=== PATIENT | male | born 1965 | race Caucasian/White ===

== ENCOUNTER 2017-06-24 18:03 | Observation (INO) ==
[2017-06-24] MEDS ORDERED: Aspirin 81 MG TAB.CHEW PO ONE (18:10)
--- NOTE | 2017-06-24 18:25 | Emergency Department Note ---
Disposition Clinical Impression: Chest wall tenderness Disposition: Still a Patient Reasons to Return/Additional Instructions: Take medications as described, follow up with cardiology within 48 hours. If his symptoms change or worsen please return to the ED for reevaluation. Forms: ED Satisfaction Letter Chest Pain HPI - General Chief Complaint: ED Chest Pain Stated Complaint: CP Time Seen by Provider: 06/24/17 18:06 Source: patient Limitations: no limitations Vital Signs Reviewed: Yes Nursing Notes Reviewed: Yes - History of Present Illness HPI Narrative: Patient's 52-year-old male with a history of vertigo and rhythm is currently status post pacemaker 10 years. Patient complains of chest pain subxiphoid with radiation to left shoulder and through to his back that started 1 hour ago while at home sitting at rest. 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 Patient denies any other medical history for hypertension, hyperlipidemia, diabetes. Patient takes part and chewing tobacco and occasional alcohol usage. 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 Patient states he has some dizziness with chest pain and when he sits up. Severity scale (1-10): 9 - Related Data Allergies Allergy/AdvReac Type Severity Reaction Status Date / Time No Known Allergies Allergy Verified 06/24/17 18:18 Review of Systems: Patient admits to dizziness (room spinning), but denies headache, nausea, vomiting, abdominal pain, diarrhea, hematochezia, melena, hematuria, lower back pain, extremity numbness or weakness All systems ED: reviewed and negative except as stated. Review of Systems: As Per HPI Chest Pain PMH - Past Medical History Medical history: Reports: other Psychiatric history: Reports: depression - Social History Smoking Status: Never smoker Alcohol use: Reports: occasionally Drug use: Reports: none Physical Exam - General Limitations: no limitations General appearance: alert - Head Head exam: atraumatic, normocephalic, normal inspection - Eye Eye exam: Present: normal appearance, PERRL, EOMI. Absent: scleral icterus - ENT ENT exam: normal exam, mucous membranes moist, other (Poor dentition) - Neck Neck exam: Present: normal inspection, full ROM, trachea midline. Absent: tenderness, meningismus, lymphadenopathy - Chest Chest inspection: Present: symmetric chest wall rise, tenderness (To palpation subxiphoid region contingency of the patient's left-sided chest wall to left shoulder and down posterior chest wall and left side.) - Respiratory Respiratory exam: Present: normal lung sounds bilaterally. Absent: respiratory distress, wheezes, accessory muscle use - Cardiovascular Cardiovascular exam: Present: regular rate, normal rhythm - Abdominal Exam Abdominal exam: Present: soft, Non-Tender, normal bowel sounds. Absent: distention, guarding, rebound, rigidity - Extremities Exam Extremities exam: Present: normal inspection, full ROM, tenderness, normal capillary refill. Absent: pedal edema, joint swelling, calf tenderness - Expanded Lower Extremity Exam Knee exam: Present: normal inspection, full ROM. Absent: tenderness Lower leg exam: Present: normal inspection, full ROM. Absent: tenderness, swelling Neurovascular/Tendon exam: Present: normal capillary refill. Absent: pulse deficit, motor deficit - Back Exam Back exam: Present: normal inspection, full ROM, tenderness. Absent: CVA tenderness (R), CVA tenderness (L) - Neurological Exam Neurological exam: Present: alert, oriented X3, CN II-XII intact - Skin Skin exam: Present: warm, dry, intact, normal color Course - Reevaluation(s) Reevaluation #1: ACS workup ordered, aspirin and nitroglycerin ordered, patient currently is 10 out of 10 chest wall tenderness reproducible palpation order NSAID therapy for chest wall inflammation if no reduction in chest pain symptoms Time: 18:34 Vital Signs Temperature 98 F 06/24/17 18:06 Pulse Rate 72 06/24/17 18:06 Respiratory Rate 16 06/24/17 18:06 Blood Pressure 144/89 06/24/17 18:06 O2 Sat by Pulse Oximetry 98 06/24/17 18:06 Temperature 98 F 06/24/17 18:06 Pulse Rate 61 06/24/17 19:14 Respiratory Rate 18 06/24/17 19:14 Blood Pressure 109/75 06/24/17 19:14 O2 Sat by Pulse Oximetry 98 06/24/17 19:14 Oxygen Delivery Oxygen Delivery Room Air Chest Pain - MDM Narrative Medical decision making narrative: Patient prior cardiac history sent onset of chest pain 10 sternal anterior chest wall and shoulder pain reproducible with palpation which patient states the back same type of pain when I press on his chest wall, is concerning for possible ACS/unstable angina symptoms were at rest., Aortic dissection with complaint of radiation from front to back. ACS labs and imaging ordered. Current plan is pending troponin. If the troponin is negative, and resolution of symptoms with therapy here and recommend follow-up outpatient with cardiology in 48 hours and daily aspirin. If troponins positive patient will be admitted for further ACS workup and trending of troponins Patient's care handed over to coming on night crew. SBAR relayed to Dr. Lal who has assumed care for remainder patient's workup and final disposition - Lab Data Result diagrams: 06/24/17 18:36 06/24/17 18:36 Lab Results 06/24/17 06/24/17 06/24/17 Range/Units 18:36 18:36 18:36 WBC 5.5 (4.3-11.1) K/mcL RBC 4.95 (4.19-5.50) M/mcL Hgb 15.1 (12.9-16.9) g/dL Hct 45.2 (37.5-50.1) % MCV 91.3 (83.0-100.0) fL MCH 30.5 (28.0-33.3) pg MCHC 33.4 (31.6-35.5) g/dL RDW 11.9 (11.5-14.5) % Plt Count 236 (140-400) K/mcL MPV 10.6 (9.4-12.4) fL Immature Gran % 0.2 (0-4) % Seg Neutrophils % 60.4 % Lymphocytes % 29.0 % Monocytes % 8.2 % Eosinophils % 1.3 % Basophils % 0.9 % Neutrophils # 3.3 (1.6-8.9) K/mcL Lymphocytes # 1.6 (0.6-4.6) K/mcL Monocytes # 0.5 (0.0-1.3) K/mcL Eosinophils # 0.1 (0.0-0.6) K/mcL Basophils # 0.1 (0.0-0.2) K/mcL Sodium 141 (136-145) mEq/L Potassium 3.9 (3.5-4.5) mEq/L Chloride 106 (98-109) mEq/L Carbon Dioxide 26 (19-29) mEq/L BUN 23 (8-26) mg/dL Creatinine 1.11 (0.72-1.25) mg/dL Est GFR ( Amer) > 60 (> 60) Est GFR (Non-Af Amer) > 60 (> 60) BUN/Creatinine Ratio 21 (6-26) Glucose 109 H (70-99) mg/dL Calculated Osmolality 296 (280-300) Calcium 9.9 (8.6-10.8) mg/dL Troponin I 0.00 (0-0.03) ng/mL - EKG Data EKG attestation: Yes I reviewed and interpreted this EKG. EKG results narrative: EKG taken 06/24/2017 1807 hrs. shows: normal sinus rhythm no acute ST elevations or depressions in any leads. No S1 and QT T3, no Brugada, no delta wave. Heart Score - Score History: Slightly Suspicious EKG: Normal Age: 45-65 Risk Factors: 1-2 risk factors Troponin: Less than normal limit HEART Score Total: 2 S.B.A.R. - S.B.A.R. Transition of Care: Transition care handed to coming on a crew of Dr. Montero and Dr. Lal Situation: Demographics, MOA Background: Presenting Complaint, Relevant PMH, Meds, & Allergies Assessment: Vital Signs, Course and respsone to treatment, Exam Concerns, Patient/Family Expectation, Pertinant Lab Results, Outstanding Labs Recommendation: Barrier(s) to disposition, Recommendation based on pending studies, treatments, or consults S.B.A.R. Report Given to: Doctor Lal SKwasiAAndrew Repor Time: 18:50
[2017-06-24] MEDS ORDERED: 0.9 % Sodium Chloride 1,000 ML IVC ONE (18:32)
--- NOTE | 2017-06-24 18:37 | Emergency Department Note ---
START Narrative - START START: I examined this patient and my medical decision-making was reviewed with the SECURITY INTELLIGENCE ANALYST/PA/Advanced Practice Nurse/Resident Physician. I agree with the documented findings, disposition and treatment plan as described except to the extent set forth below. ED attending note: Patient seen with emergency medicine resident Dr. OLSON. Please see a copy of his note for details of the H&P, evaluation, management and disposition of this patient. We independently had [id number] contact with the patient Briefly: A 52-year-old male history of past Anderson, presents with chest pain for 1 day. EKG shows no acute ischemic changes sinus rhythm. Patient has a pacemaker for bradycardia from years ago. No known coronary artery disease. She was tobacco. Heart score is at 2. Awaiting troponin and chest x-ray. Plan is safe imaging and laboratory studies are otherwise unremarkable, discharge home and outpatient follow-up with daily baby aspirin. Disposition pending. Case will be signed over to the oncoming ED attending team of Dr. MCLAUGHLIN and Dr. gould
[2017-06-24] MEDS: Nitroglycerin 0.4 MG TAB.SUBL SL PRN ×3 (18:44→22:08)
[2017-06-24 18:45] LABS: Basophils # 0.1 K/mcL (0.0-0.2); Basophils % 0.9 %; Eosinophils # 0.1 K/mcL (0.0-0.6); Eosinophils % 1.3 %; Hematocrit 45.2 % (37.5-50.1); Hemoglobin 15.1 g/dL (12.9-16.9); Immature Granulocytes % 0.2 % (0-4); Lymphocytes # 1.6 K/mcL (0.6-4.6); Mean Corpuscular HGB Conc 33.4 g/dL (31.6-35.5); Mean Corpuscular Hemoglobin 30.5 pg (28.0-33.3); Mean Corpuscular Volume 91.3 fL (83.0-100.0); Mean Platelet Volume 10.6 fL (9.4-12.4); Monocytes # 0.5 K/mcL (0.0-1.3); Monocytes % 8.2 %; Neutrophils # 3.3 K/mcL (1.6-8.9); Platelet Count 236 K/mcL (140-400); Red Blood Count 4.95 M/mcL (4.19-5.50); Red Cell Distribution Width 11.9 % (11.5-14.5); Segmented Neutrophils % 60.4 %
[2017-06-24 18:58] LABS: BUN/Creatinine Ratio 21 (6-26); Blood Urea Nitrogen 23 mg/dL (8-26); Calcium 9.9 mg/dL (8.6-10.8); Carbon Dioxide 26 mEq/L (19-29); Chloride 106 mEq/L (98-109); Glucose 109 mg/dL (70-99); Osmolality,Calculated 296 (280-300); Potassium 3.9 mEq/L (3.5-4.5); Sodium 141 mEq/L (136-145); eGFR For African Americans > 60 (> 60); eGFR For Non-African Americans > 60 (> 60)
--- NOTE | 2017-06-24 19:36 | Emergency Department Note ---
Disposition Clinical Impression: Chest pain, rule out acute myocardial infarction Disposition: Admitted As Inpatient Condition: Good Time of Disposition: 19:30 Chest Pain HPI - General Chief Complaint: ED Chest Pain Stated Complaint: CP Time Seen by Provider: 06/24/17 18:06 Source: patient Limitations: no limitations Vital Signs Reviewed: Yes Nursing Notes Reviewed: Yes - History of Present Illness Severity scale (1-10): 9 - Related Data Allergies Allergy/AdvReac Type Severity Reaction Status Date / Time No Known Allergies Allergy Verified 06/24/17 18:18 Chest Pain PMH - Past Medical History Medical history: Reports: other Psychiatric history: Reports: depression - Social History Smoking Status: Never smoker Alcohol use: Reports: occasionally Drug use: Reports: none Physical Exam - General Limitations: no limitations General appearance: alert Course Vital Signs Temperature 98 F 06/24/17 18:06 Pulse Rate 72 06/24/17 18:06 Respiratory Rate 16 06/24/17 18:06 Blood Pressure 144/89 06/24/17 18:06 O2 Sat by Pulse Oximetry 98 06/24/17 18:06 Temperature 98.2 F 06/24/17 20:39 Pulse Rate 60 06/24/17 20:39 Respiratory Rate 15 06/24/17 20:39 Blood Pressure 106/67 06/24/17 20:39 O2 Sat by Pulse Oximetry 97 06/24/17 20:39 Oxygen Delivery Oxygen Delivery Nasal Cannula Chest Pain - MDM Narrative Medical decision making narrative: I, Servando Montero, examined this patient and my medical decision-making was reviewed with the BONDING AGENT/PA/Advanced Practice Nurse/Resident Physician. I agree with the documented findings, disposition and treatment plan as described except to the extent set forth below. 52-year-old male received in sign out at start of my shift pending laboratory evaluation, reevaluation and disposition. On my reevaluation the patient states he had acute onset of a sharp pain that radiated to his left shoulder and arm, fluctuated in intensity for about an hour prior to resolving with nitroglycerin. Patient states with the chest pain he became dyspneic, tachycardic, diaphoretic and near syncopal. Last stress test was over 10 years ago in [place]. 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 He states that he has become increasingly dyspneic with exertion. I am unable to classify this patient's pain as musculoskeletal and he does not have a clear picture of the chest pains etiology. Pt will be admitted for continuation of his care. - Medical Records Medical records reviewed: Yes I reviewed the patient's medical records. - Lab Data Lab results reviewed: Yes I reviewed the patient's lab results. Result diagrams: 06/24/17 18:36 06/24/17 18:36 Lab Results 06/24/17 06/24/17 06/24/17 Range/Units 18:36 18:36 18:36 WBC 5.5 (4.3-11.1) K/mcL RBC 4.95 (4.19-5.50) M/mcL Hgb 15.1 (12.9-16.9) g/dL Hct 45.2 (37.5-50.1) % MCV 91.3 (83.0-100.0) fL MCH 30.5 (28.0-33.3) pg MCHC 33.4 (31.6-35.5) g/dL RDW 11.9 (11.5-14.5) % Plt Count 236 (140-400) K/mcL MPV 10.6 (9.4-12.4) fL Immature Gran % 0.2 (0-4) % Seg Neutrophils % 60.4 % Lymphocytes % 29.0 % Monocytes % 8.2 % Eosinophils % 1.3 % Basophils % 0.9 % Neutrophils # 3.3 (1.6-8.9) K/mcL Lymphocytes # 1.6 (0.6-4.6) K/mcL Monocytes # 0.5 (0.0-1.3) K/mcL Eosinophils # 0.1 (0.0-0.6) K/mcL Basophils # 0.1 (0.0-0.2) K/mcL Sodium 141 (136-145) mEq/L Potassium 3.9 (3.5-4.5) mEq/L Chloride 106 (98-109) mEq/L Carbon Dioxide 26 (19-29) mEq/L BUN 23 (8-26) mg/dL Creatinine 1.11 (0.72-1.25) mg/dL Est GFR ( Amer) > 60 (> 60) Est GFR (Non-Af Amer) > 60 (> 60) BUN/Creatinine Ratio 21 (6-26) Glucose 109 H (70-99) mg/dL Calculated Osmolality 296 (280-300) Calcium 9.9 (8.6-10.8) mg/dL Troponin I 0.00 (0-0.03) ng/mL - Radiology Data Radiology results reviewed: Yes I reviewed the patient's radiology results. Heart Score - Score History: Moderately Suspicious EKG: Normal Age: 45-65 Risk Factors: 1-2 risk factors Troponin: Less than normal limit HEART Score Total: 3
[2017-06-24] MEDS ORDERED: Naloxone 0.4 MG/ML INJ IVP PRN (20:12)
[2017-06-24] MEDS ORDERED: Nitroglycerin 0.4 MG TAB.SUBL SL PRN (20:16)
--- NOTE | 2017-06-24 20:23 | Internal Med History&Physical ---
<Brian Branham J - Last Filed: 06/24/17 20:19> Date of Encounter: 06/24/17 Time of Encounter: 20:19 Assessment and Plan (1) Chest pain, rule out acute myocardial infarction Current visit: Yes Status: Acute Being admitted for chest pain rule out myocardial infarction. Arrived in the ED with increasing chest pain, difficulty breathing, diaphoresis, dizziness and near syncopal episode. EKG showed normal sinus rhythm rate in the 70s. Troponin drawn in the ED was negative at 0.00. BMP, and CBC are unremarkable. Chest x-ray showed no acute pulmonary process. Admit for observation Consult cardiology due to history of bradycardia requiring a pacer. Patient is not working at time of arrival in the emergency department however the patient is remaining normal sinus rhythm~~dayshift rounding team to call cardiology consult. Exercise stress test Continuous telemetry Continuous SPO2 monitoring Q4 hour vitals Oxygen 2 L nasal cannula Trend troponins, CMP, CBC, lipids in the a.m. Cardiac diet, nothing by mouth after midnight, no beta blockers or caffeine before stress Patient remained saline locked Sublingual nitroglycerin order for chest pain DVT prophylaxis 40 mg subcutaneous Lovenox (2) Bradycardia Current visit: Yes Status: Acute Being admitted for chest pain rule out. Arrived in the ED with increasing chest pain, difficulty breathing, diaphoresis, and near syncopal episode.Patient has a history of bradycardia requiring a pacemaker. However the time of arrival in the ED the pacemaker was nonfunctioning. Thus far he has remained normal sinus rhythm without any chest pain since arrival. Cardio consult to assess further need for pacemaker and/or need for interrogation. (3) DVT prophylaxis Current visit: Yes Status: Acute Throughout hospital course the patient will have a decrease from baseline activity. Increased risk for DVT. Start lovenox SC 40mg daily. Internal Medicine - H&P: HPI Chief complaint: chest pain Admitted From: Home Plans for Post Hospital Care: Home History of present illness: Mr. Canales is a 52 year old male with a PMH of bradycardia requiring a pacer. Otherwise history is minimial as the patient does not regularly see a PCP. Being worked up as a CP r/o ND. Presented to [facility] with shortness of breath ongoing over the past few days. Admits that he has had a decrease in activity and increase in shortness of breath as well as intermittent chest pain and diaphoresis. However, the patient noted increasing chest pain, described as knifelike with radiation to the back and shoulders as well as left arm, diaphoresis, and dyspnea as well as dizziness and a near syncopal event. He was dynamically stable upon arrival to date. EKG showed normal sinus rhythm rate of 70. Troponin was drawn with a result of 0.00. CBC, and BMP both unremarkable. Chest x-ray was without acute process. Is being admitted to [facility] further workup and evaluation Past Med Surg Social Fam HX - Past Medical History Medical history: other Psychiatric history: depression - Social History Smoking Status: Never smoker Smokeless Tobacco Status: Yes Alcohol use: occasionally Drug use: none - Additional Family History Additional family history: Family history noncontributory Internal Medicine - H&P: Meds Allergies No Known Allergies Allergy (Verified 06/24/17 18:18) All Systems PM: A 10-system review of systems was performed and is negative for pertinent findings except as documented above in the HPI. - Constitutional Constitutional: fatigue, lethargy, weakness, no chills, no fever(s), no night sweats, no weight gain, no weight loss - EENT Eyes: no change in vision, no discharge, no pain, no photophobia Ears: no ear discharge, no ear pain, no tinnitus Nose, mouth and throat: no dysphagia, no nasal discharge, no neck pain, no sore throat - Cardiovascular Cardiovascular ROS IM: diaphoresis, dyspnea on exertion, lightheadedness, syncope (near syncopal), no chest pain, no edema, no irregular heart rhythm, no palpitations - Respiratory Respiratory: dyspnea, no cough, no wheezing, no chest congestion, no excessive phlegm production - Gastrointestinal Gastrointestinal: no abdominal pain, no diarrhea, no hematemesis, no hematochezia, no melena, no nausea, no vomiting - Musculoskeletal Musculoskeletal ROS IM: no numbness, no tingling - Integumentary Integumentary IM: no rash, no unusual bruising - Neurological Neurological ROS: dizziness, no confusion, no convulsions, no disequilibrium, no focal weakness, no headache(s), no numbness, no tingling, no tremor(s), no vertigo, no weakness - Hematologic/Lymphatic Hematologic/Lymphatic: no easy bruising - Constitutional Vitals: Temp Pulse Resp BP Pulse Ox 98 F 61 18 109/75 98 06/24/17 18:06 06/24/17 19:14 06/24/17 19:55 06/24/17 19:55 06/24/17 19:14 General appearance: Present: cooperative, A&O X 3, pleasant, no acute distress, answers questions appropriately - Head Head exam: Present: atraumatic, normocephalic - Eye Eye exam: Present: PERRL, conjuntiva pink, sclera anicteric Pupils: Present: PERRL - Neck Neck exam general surgery: Present: supple, trachea midline. Absent: lymphadenopathy - Respiratory Respiratory exam: Present: CTAB. Absent: accessory muscle use, rales, rhonchi, wheezes - Cardiovascular Cardiovascular exam: Present: RRR, +S1, +S2. Absent: diastolic murmur, gallop, rubs, systolic murmur - GI/Abdominal GI/Abdominal exam: Present: normal bowel sounds, soft, no peritoneal signs. Absent: distended, tenderness - Extremities Exam Extremities exam: Present: warm, radial pulses palpable and symmetrical. Absent : calf tenderness, cyanotic, pedal edema - Expanded Lower Extremities Exam Knee exam: Absent: swelling Lower Leg exam: Absent: swelling Foot/Toe exam: Absent: tenderness - Neurological Exam Neurological exam: Present: CN II-XII intact, oriented X3, no focal deficits. Absent: pronater drift, facial droop, speech deficit - Skin Skin exam: Present: dry, intact Internal Med - H&P Results - Labs CBC & Chem 7: 06/24/17 18:36 06/24/17 18:36 - EKG Data EKG shows normal: sinus rhythm (no ST elevation or depression) Rate: normal - Diagnostic Studies CT scan - chest Additional comments: NO ACUTE PULMONARY PROCESS <Asia Reid - Last Filed: 06/24/17 21:12> Date of Encounter: 06/24/17 Internal Medicine - H&P: HPI History of present illness: Mr. Canales is a 52 year old male All Systems PM: A 10-system review of systems was performed and is negative for pertinent findings except as documented above in the HPI. - Constitutional Vitals: Temp Pulse Resp BP Pulse Ox 98.2 F 60 15 106/67 97 06/24/17 20:39 06/24/17 20:39 06/24/17 20:39 06/24/17 20:39 06/24/17 20:39 Internal Med - H&P Results - Labs CBC & Chem 7: 06/24/17 18:36 06/24/17 18:36 - Attending Attestation I have personally performed a face to face evaluation on this patient. I have reviewed and agree with the care plan. History and Exam by me shows: 52 yo with increased SOB over the last few days, worse when mowing the lawn. Significant exertional component. Today, he was at rest when he noted onset of chest pressure, dyspnea, diaphoresis and pre-syncopal symptoms while sitting at home. Hazard a heaviness in chest. Reports hx of bradycardia s/p pacer > 10 years ago in [place]. He takes no meds. He is here to visit his family for a few weeks and will return to [place] early next month. ROS 14 point review of systems reviewed as best as possible given presentation. Pertinent positive or negative as per HPI or otherwise reviewed as negative General - AAO x 3 Psych - Appropriate affect/speech. No agitation Eyes - FAY. Eye lids intact. No scleral icterus ENT - Oral mucosa pink, dentition intact. External ear clear/dry/intact. No thyromegaly Lymphatics - No cervical/inguinal lympadenopathy Neuro - No gross peripheral or central neuro deficits with intact CN 2-12 exam Heart - Sinus. RRR. S1 and S2 present. No added HS/murmurs appreciated. No elevated JVD appreciated. No calf swellings/erythema Lung - Adequate air entry b/l, No crackes/wheezes appreciated GI - Soft, non-tender. No hepatosplenomegaly/ascites. BS+ - No CVA/suprapubic tenderness or palpable bladder distension Skin - Intact. No rash/petechiae/ecchymosis. Warm extremities MSK - Joints with normal ROM. No joint swellings Chest pain eval - hx seems concerning for cardiac in nature - trend trop - stress testing in the a.m Hx of bradycardia s/p pacer - family wishes to have pacer checked up since EKG does not indicate pacer is functional. - they mentioned that he will not see a doctor when he gets out of the hospital and wishes to use this opportunity to have him evaluated - consult cards to eval pacer - suspect battery
[2017-06-24] MEDS: Acetaminophen 325 MG TABLET PO PRN (22:08)
[2017-06-25 00:46] LABS: Basophils % 0.8 %; Eosinophils # 0.1 K/mcL (0.0-0.6); Eosinophils % 1.9 %; Hematocrit 37.9 % (37.5-50.1); Immature Granulocytes % 0.2 % (0-4); Lymphocytes # 1.8 K/mcL (0.6-4.6); Lymphocytes % 38.3 %; Mean Corpuscular HGB Conc 33.5 g/dL (31.6-35.5); Mean Corpuscular Hemoglobin 30.5 pg (28.0-33.3); Mean Corpuscular Volume 91.1 fL (83.0-100.0); Mean Platelet Volume 10.7 fL (9.4-12.4); Monocytes # 0.5 K/mcL (0.0-1.3); Monocytes % 9.7 %; Neutrophils # 2.3 K/mcL (1.6-8.9); Platelet Count 204 K/mcL (140-400); Red Blood Count 4.16 M/mcL (4.19-5.50); Red Cell Distribution Width 11.9 % (11.5-14.5); Segmented Neutrophils % 49.1 %
[2017-06-25 00:52] LABS: Hemoglobin 12.7 g/dL (12.9-16.9)
[2017-06-25 01:06] LABS: Alanine Aminotransferase 22 Units/L (0-55); Albumin 3.6 g/dL (3.5-5.0); Albumin/Globulin Ratio 1.3 (1.1-2.2); Alkaline Phosphatase 72 Units/L (38-126); Aspartate Amino Transferase 20 Units/L (5-34); BUN/Creatinine Ratio 23 (6-26); Bilirubin,Total 0.7 mg/dL (0.2-1.2); Blood Urea Nitrogen 20 mg/dL (8-26); Calcium 8.8 mg/dL (8.6-10.8); Carbon Dioxide 26 mEq/L (19-29); Chloride 107 mEq/L (98-109); Chol/HDL Ratio 4.5 (0-4.9); Cholesterol 186 mg/dL (< 200); Globulin 2.8 g/dL (2.4-3.5); Glucose 106 mg/dL (70-99); HDL Cholesterol 41 mg/dL (40-59); LDL Cholesterol,Calculated 119 mg/dL (0-99); Osmolality,Calculated 291 (280-300); Potassium 3.8 mEq/L (3.5-4.5); Sodium 139 mEq/L (136-145); Total Protein 6.4 g/dL (6.0-8.3); Triglycerides 130 mg/dL (< 150); eGFR For African Americans > 60 (> 60); eGFR For Non-African Americans > 60 (> 60)
[2017-06-25] MEDS: *HR* Enoxaparin 40 MG/0.4 ML SYRINGE SQ SCH (06:10)
--- NOTE | 2017-06-25 08:17 | Cardiology Consult Note ---
<Ryanne Farmer Francisco Javier - Last Filed: 06/25/17 08:22> Date of Encounter: 06/25/17 Time of Encounter: 08:00 Assessment and Plan (1) Chest pain Current Visit: Yes Status: Acute Presents with atypical chest pain. Troponin negative. No ischemic ECG changes. Likely not cardiac in etiology. Seen and examined in stress lab during stress test--patient did not have chest pain during test. Anticipate sign-off if no significant findings on exercise stress test. Qualifiers: Chest pain type: chest pain on breathing Qualified Code(s): R07.1 - Chest pain on breathing; R07.81 - Pleurodynia (2) Pacemaker Current Visit: Yes Status: Acute ECG upon arrival shows SR, HR 70. No indication that PPM is not functioning appropriately. Telemetry review: avg HR=67. No pause or bradycardia noted. Unable to interrogate device today as patient does not know brand of device. Has not been interrogated since implant. No urgency for interrogation as inpatient. Will arrange for outpatient follow-up at [facility] for routine device checks. Discussion w patient/family: The assessment and plan as outlined above was discussed with the patient and/or family members who expressed understanding and agreement. All questions were answered. Thank you for involving us in the care of your patient. Please call with any questions. The patient will be discussed and reviewed with Dr. Benitez; changes to be made accordingly. Anticipate Cardiology sign-off. History of Present Illness Consult date: 06/25/17 Requesting physician: Brian Branham Consult reason: Chest pain Chief complaint: Chest pain History of present illness: Mr. Canales is a 52 year old male with PMHx significant for bradycardia s/p PPM (2006) and former tobacco use who presented to the ED with complaints of chest discomfort. He reports pain started yesterday while sitting on the couch watching TV, pain was sharp and knife-like which prompted ED evaluation. Of note , he reports he routinely push mows the lawn without symptoms. Does endorse worsening shortness of breath over the past several months. Reports PPM implant nearly 10 years ago and has not followed with PCP or had device check. No records available in [facility], patient does not know the brand of device he has. Past Med Surg Social Fam HX - Past Medical History Attestation: Yes The following information was validated with the patient. Source: patient Medical history: other (bradycardia) Psychiatric history: depression - Past Surgical History Surgical History: pacemaker - Social History Smoking Status: Former smoker Packs per day: quit smoking 7 years ago Smokeless Tobacco Status: Yes (0.5 CAN) Alcohol use: occasionally Drug use: none - Family History Mother Living Status: Age at : 78 Cause of : CA Hx Family Cardiac Disorders: Yes Father Living Status: Cause of : CA Hx Family Cardiac Disorders: Yes Medications and Allergies No Known Home Drugs 06/24/17 [History] Allergies No Known Allergies Allergy (Verified 06/24/17 18:18) All Systems Review: A 10-system review of systems was performed and is negative for pertinent findings except as documented above in the HPI. - Cardiovascular Cardiovascular: as per HPI Physical Examination General: Conversant, No Apparent Distress HEENT: Atraumatic, Normocephaly, Mucus Membranes Moist Neck: No JVD, Normal carotid pulses Cardiac: Reg Rate and Rhythm, Normal S1 and S2, No Murmur Lungs: Normal Breath Sounds, No Wheeze, Rales, Rhonchi Neuro: Alert and responsive, No focal deficits noted Abdomen: Soft, Non-Tender Skin: No rashes noted on visualized skin Musculoskeletal: No Chest Wall Tenderness Extremities: No Clubbing, No Cyanosis, No Edema, Normal Pulses Results 06/25/17 00:33 06/25/17 00:33 Lab Results 06/25/17 06/25/17 06/25/17 00:33 00:33 00:33 WBC 4.7 Hgb 12.7 L D Hct 37.9 Plt Count 204 Sodium 139 Potassium 3.8 Chloride 107 Carbon Dioxide 26 BUN 20 Creatinine 0.87 Glucose 106 H Calcium 8.8 Total Bilirubin 0.7 AST 20 ALT 22 Alkaline Phosphatase 72 Troponin I 0.00 06/25/17 05:32 WBC Hgb Hct Plt Count Sodium Potassium Chloride Carbon Dioxide BUN Creatinine Glucose Calcium Total Bilirubin AST ALT Alkaline Phosphatase Troponin I 0.00 Active Medications Acetaminophen (Tylenol) 650 mg PO Q6HR PRN PRN Reason: Mild Pain (1-3) Stop: 12/24/17 20:13 Last Admin: 06/24/17 22:08 Dose: 650 mg Enoxaparin Sodium (Lovenox) 40 mg SQ 0600 [facility] PRN Reason: Protocol Stop: 12/25/17 06:01 Last Admin: 06/25/17 06:10 Dose: 40 mg Naloxone HCl (Narcan) 0.4 mg IVP Q2MIN PRN PRN Reason: Opioid Reversal Stop: 12/24/17 20:13 Nitroglycerin (Nitroglycerin) 0.4 mg SL Q5MIN PRN PRN Reason: Chest Pain Stop: 12/24/17 18:34 Last Admin: 06/24/17 22:08 Dose: 0.4 mg - Imaging and Cardiology Stress Test: pending Other Results: Telemetry: avg HR=67. No pause or bradycardia noted. Paced at times. - EKG Interpretation EKG results cardiology: personally reviewed Consult Discharge Plan - Plan Referrals: NONE,PCP [Primary Care Provider] - <Camila Benitez - Last Filed: 06/25/17 09:47> Date of Encounter: 06/25/17 Assessment and Plan Discussion w patient/family: The assessment and plan as outlined above was discussed with the patient and/or family members who expressed understanding and agreement. All questions were answered. Thank you for involving us in the care of your patient. Please call with any questions. History of Present Illness History of present illness: Mr. Canales is a 52 year old male All Systems Review: A 10-system review of systems was performed and is negative for pertinent findings except as documented above in the HPI. Physical Examination Vital Signs, Last 4 Hours Temp Pulse Resp BP Pulse Ox 06/25/17 08:25 97 06/25/17 08:24 97.6 F 59 17 107/71 96 Results 06/25/17 00:33 06/25/17 00:33 Lab Results 06/25/17 06/25/17 06/25/17 00:33 00:33 00:33 WBC 4.7 Hgb 12.7 L D Hct 37.9 Plt Count 204 Sodium 139 Potassium 3.8 Chloride 107 Carbon Dioxide 26 BUN 20 Creatinine 0.87 Glucose 106 H Calcium 8.8 Total Bilirubin 0.7 AST 20 ALT 22 Alkaline Phosphatase 72 Troponin I 0.00 06/25/17 05:32 WBC Hgb Hct Plt Count Sodium Potassium Chloride Carbon Dioxide BUN Creatinine Glucose Calcium Total Bilirubin AST ALT Alkaline Phosphatase Troponin I 0.00 - Attending Attestation I examined this patient and my medical decision-making was reviewed with the Resident Physician. I agree with the documented findings, disposition and treatment plan. Mr. Canales presents with atypical chest pain, negative troponins and no acute ECG changes. He is from visiting from [place] and reports having a pacemaker placed 10 years ago but does not follow a chemical mixer regularly. His sister, who I spoke with on the phone says that his pacer was placed in 2011. However, they are not aware of the type of pacemaker. We therefore are unable to interrogate it today over the weekend. This does not appear to be urgent and can wait until the weekday when the offices are open. The pacer was functioning overnight - no episodes of bradycardia. Otherwise, will await stress test findings. If no concerns, will anticipate signing off.
[2017-06-25] MEDS ORDERED: *HR* Morphine 2 MG/ML SYRINGE IVP PRN (10:51)
[2017-06-25] MEDS: Nitroglycerin 0.4 MG TAB.SUBL SL PRN ×2 (10:57→11:04)
--- NOTE | 2017-06-25 11:01 | Exercise Stress Test ---
Exercise Stress Name: Wei Canales Date of Study: 06/25/2017 Date: 1965 Ht: 70.0in Medical Record#: [id number] Age: 52 Wt: 191.0lb Gender: Male BSA: 2.05 Order #: [id number] Location: [facility] Room #: 3B49 Reading Physician: Camila Benitez DO Technologist: Chuckie Amezcua, FIRE PROTECTION EQUIPMENT TECHNICIAN, CCT Supervising Provider: Ryanne Farmer CNP Primary Physician: None Ordering Physician: Mirna Mo CNP Indication: Chest Pain Impressions: Stress ECG was indeterminate for ischemia due to failure to achieve target heart rate. ECG interpretation is also challenging secondary to abnormal ST findings at baseline. Exercise capacity was average. Adequate blood pressure response. No arrhythmias noted with stress. Patient had no chest pain with stress. Findings: Baseline ECG demonstrates NSR with HR [address] abnormalities. Exercise ECG is non diagnostic due to failure to achieve target heart rate. Also seen are nonspecific ST abnormalities at baseline making interpretation of stress ECG challenging. No arrhythmias noted during exercise or recovery. The patient demonstrated a adequate blood pressure response. The exercise capacity was average. No chest pain during stress procedure. History: Family Histor No Stress Test Summary: Stress Test Type: Treadmill Protocol: Landon Baseline Information: Maximum Predicted HR: 168 85% MPHR: 143 Blood Pressure: 108 / 72 Stress Information: Total Exercise Time: 9 20 Test Terminated Due To: Dyspnea Maximum Blood Pressure: 132 / 70 Maximum Heart Rate: 120 Percent Maximum Heart Rate Achieved: 72 Double Product: 15,840 METS Reached: 10.1 Updated by Camila Benitez on 06/25/2017 10:56:05 AM electronically signed on 06/25/2017 10:58:04 AM with status of Final
[2017-06-25] MEDS: Acetaminophen 325 MG TABLET PO PRN (11:12)
[2017-06-25] MEDS: predniSONE 20 MG TABLET PO SCH (15:04)
--- NOTE | 2017-06-25 15:18 | Internal Med Progress Note ---
Date of Encounter: 06/25/17 Time of Encounter: 12:30 - Assessment and plan (1) Chest pain Current Visit: Yes Status: Acute Assessment and plan: Patient still having intermittent bouts of epigastric/substernally located chest pain. Relieved with nitroglycerin consistent with either cardiac etiology or esophageal spasms secondary to his uncontrolled reflux. He is also endorsing worsened dyspnea on exertion recently. Echocardiogram pending. We will also treat with bronchodilators and steroids and assess his response. Of note, he is from [place] and is in town for the next couple weeks. He and his state that once he leaves the hospital, he is unlikely to return for any type of appointments for further assessments. Cardiology is on board-patient and requesting that his pacemaker be checked prior to discharge. Stress test difficult to interpret but appears to be unremarkable. Appreciate cardiology recommendations. ITS Impressions Chest X-Ray 06/24/17 18:10 IMPRESSION: No acute cardiopulmonary disease. D/ / Avery Starkey MD / Avery Starkey MD Interpreting Provider: Avery Starkey MD Exercise Stress Impressions: Stress ECG was indeterminate for ischemia due to failure to achieve target heart rate. ECG interpretation is also challenging secondary to abnormal ST findings at baseline. Exercise capacity was average. Adequate blood pressure response. No arrhythmias noted with stress. Patient had no chest pain with stress. Qualifiers: Chest pain type: chest pain on breathing Qualified Code(s): R07.1 - Chest pain on breathing; R07.81 - Pleurodynia (2) Pacemaker Current Visit: Yes Status: Chronic Assessment and plan: Patient stating he had have a pacemaker placed because his heart rate would routinely be in the 30s and 40s. His sister was able to send us a picture of the card for his pacemaker and it was placed in 2011 by [employer]. Patient is would like for the pacemaker to be interrogated prior to discharge. Patient and both agree that after he is discharged, he will not come back to the hospital. They are here from [place] and will be in town for another couple weeks. (3) POE (dyspnea on exertion) Current Visit: Yes Status: Acute Assessment and plan: Patient stating he used to be able to walk miles but he states over the past several weeks that he has had extreme shortness of breath limiting the amount that he can walk. Unclear causation at this time. The patient's of 10 months states that he is always on the go and always has to stay busy. We will check thyroid levels. Also could be undiagnosed COPD, he is a former heavy smoker and has never been on COPD medications. Could also have a component of heart failure-echocardiogram pending. He appears euvolemic on examination. (4) Tobacco abuse Current Visit: Yes Status: Chronic Assessment and plan: Patient currently uses smokeless tobacco however up until 6 years ago, he was a heavy smoker. Suspect he may have undiagnosed COPD. We will start with duo nebs and by mouth steroids to monitor his response (5) Esophageal spasm Current Visit: Yes Status: Suspected Assessment and plan: Patient stating he gets "heartburn real bad" daily. He does not take any medication. We will start him on twice a day PPI. Of note, patient's symptoms of severe stabbing epigastric/mid sternally located chest pain could be consistent with esophageal spasms secondary to uncontrolled hypertension. Of note, his pain is relieved with nitroglycerin which again would be consistent with esophageal spasms but could also be consistent with cardiac etiology- cardiology is on board, appreciate their recommendations. (6) GERD (gastroesophageal reflux disease) Current Visit: Yes Status: Chronic Qualifiers: Esophagitis presence: esophagitis presence not specified Qualified Code(s) : K21.9 - Gastro-esophageal reflux disease without esophagitis (7) Bradycardia Current Visit: Yes Status: Chronic (8) Learning disability Current Visit: Yes Status: Chronic Assessment and plan: I have confirmed with the patient's (NOT in presence of the patient- he becomes very angry and defensive) that he has learning disabilities. Patient did tell me that his sister in [place] "Gets my disability check and makes sure all my bills are paid. She keeps me." Patient is a poor historian but appears to comprehend most of what is going on. (9) DVT prophylaxis Current Visit: Yes Status: Acute Assessment and plan: Subcutaneous Lovenox - Subjective Interval history: Patient seen and examined. On examination, patient resting supine in bed. He currently denies pain but states he has been having chest pain throughout the day. He states that he is eating well. He currently denies shortness of breath above his norm but states he is worried because "I used to be able to walk miles, now I can't walk no where without gettin too short of breath." - Constitutional Vitals: Temp Pulse Resp BP Pulse Ox 97.9 F 70 16 107/62 94 06/25/17 10:57 06/25/17 11:09 06/25/17 11:09 06/25/17 11:09 06/25/17 11:09 General appearance: Present: cooperative, A&O X 3, pleasant, no acute distress, answers questions appropriately - Head Head exam: Present: atraumatic, normocephalic - Eye Eye exam: Present: PERRL, conjuntiva pink, sclera anicteric Pupils: Present: PERRL - Neck Neck exam general surgery: Present: supple, trachea midline. Absent: lymphadenopathy - Respiratory Respiratory exam: Present: decreased breath sounds. Absent: accessory muscle use, rales, respiratory distress, rhonchi - Cardiovascular Cardiovascular exam: Present: RRR, +S1, +S2. Absent: diastolic murmur, gallop, rubs, systolic murmur - GI/Abdominal GI/Abdominal exam: Present: normal bowel sounds, soft, no peritoneal signs. Absent: distended, tenderness - Extremities Exam Extremities exam: Present: warm, radial pulses palpable and symmetrical. Absent : calf tenderness, cyanotic, pedal edema - Neurological Exam Neurological exam: Present: alert, CN II-XII intact, oriented X3, no focal deficits, strengths equal and symetr throughout. Absent: pronater drift, facial droop, speech deficit - Skin Skin exam: Present: dry, intact, pallor, warm Internal Medicine: Result - Labs CBC & Chem 7: 06/25/17 00:33 06/25/17 00:33 Labs: Short CBC 06/25/17 Range/Units 00:33 WBC 4.7 (4.3-11.1) K/mcL Hgb 12.7 L D (12.9-16.9) g/dL Hct 37.9 (37.5-50.1) % Plt Count 204 (140-400) K/mcL Neutrophils # 2.3 (1.6-8.9) K/mcL BMP 06/25/17 00:33 Sodium 139 Potassium 3.8 Chloride 107 Carbon Dioxide 26 BUN 20 Creatinine 0.87 Glucose 106 H Calcium 8.8 Cardiac Enzymes 06/25/17 06/25/17 Range/Units 00:33 05:32 Troponin I 0.00 0.00 (0-0.03) ng/mL Liver Function 06/25/17 Range/Units 00:33 Total Bilirubin 0.7 (0.2-1.2) mg/dL AST 20 (5-34) Units/L ALT 22 (0-55) Units/L Alkaline Phosphatase 72 (38-126) Units/L Albumin 3.6 (3.5-5.0) g/dL Consult Discharge Plan - Plan Referrals: NONE,PCP [Primary Care Provider] -
[2017-06-25] MEDS: Ipratropium/Albuterol Neb 3 ML IH SCH ×2 (16:00→22:16)
--- NOTE | 2017-06-25 17:47 | Electrocardiograph Report ---
[address] [place], [place] [address] Test Date: 2017-06-24 Pat Name: Wei Canales Department: 105 Room: 3B Gender: M Desk Officer: TIFFANIE : 1965 Requested By: Kai Mosqueda Order Number: [id number] Reading MD: Camila Benitez Measurements Intervals [place] Rate: 70 P: 53 LA: 155 QRS: 56 QRSD: 103 T: 64 QT: 362 QTc: 382 Interpretive Statements SINUS RHYTHM Electronically Signed On 06-25-2017 17:45:42 EDT by Camila Benitez
[2017-06-26] MEDS: Ipratropium/Albuterol Neb 3 ML IH SCH ×3 (04:17→17:03)
[2017-06-26] MEDS: *HR* Enoxaparin 40 MG/0.4 ML SYRINGE SQ SCH (05:15)
[2017-06-26 05:28] LABS: Thyroid Stimulating Hormone 0.763 mcIU/mL (0.350-4.840)
[2017-06-26] MEDS: predniSONE 20 MG TABLET PO SCH (07:48)
[2017-06-26] MEDS ORDERED: GI Cocktail 40 ML EACH PO ONE (09:23)
[2017-06-26 15:03] VITALS: BP 113/73
[2017-06-26] MEDS: Acetaminophen 325 MG TABLET PO PRN (15:14)
--- NOTE | 2017-06-26 17:18 | Cardiology Progress Note ---
Date of Encounter: 06/26/17 Time of Encounter: 17:18 Assessment and Plan (1) Chest pain Current Visit: Yes Status: Acute Per cardiology: -Presents with atypical chest pain. Troponins negative x 3. - No ischemic ECG changes. -Likely not cardiac in etiology. -Echo with LVEF 55%, all spencer with normal motion. -Standard stress non-diagnostic for ishcemia, patient denied chest pain during excercise and excercised for 9minutes and 20 seconds. -Cardiology will sign off. Patient strongly encouraged to follow with primary summer nanny in [place]. Patient and state understanding. Qualifiers: Chest pain type: chest pain on breathing Qualified Code(s): R07.1 - Chest pain on breathing; R07.81 - Pleurodynia (2) Pacemaker Current Visit: Yes Status: Chronic Per cardiology: -ECG upon arrival shows SR, HR 70. -No indication that PPM is not functioning appropriately. -Telemetry review: avg HR=73. No pause or bradycardia noted. -Device check today with [employer] pacemaker. Battery longevity greater than 9 years. 06/23/17 sinus tachycardia event noted lasting 15 seconds. Device had not been checked since implantation 2011. -I strongly encouraged patient to follow with primary summer nanny in [place]. Discussion w patient/family: The assessment and plan as outlined above was discussed with the patient and/or family members who expressed understanding and agreement. All questions were answered. Thank you for involving us in the care of your patient. Please call with any questions. Discussed and reviewed with . Subjective Principal diagnosis: atypical chest pain Interval history: Patient denies chest pain overnight. Denies shortness of breath of increased fatigue. Objective Vital Signs, Last 4 Hours Temp Pulse Resp BP Pulse Ox 06/26/17 15:02 98.1 F 60 14 113/73 95 General: Conversant, No Apparent Distress HEENT: Atraumatic, Normocephaly, Mucus Membranes Moist Neck: No JVD, Normal carotid pulses Cardiac: Reg Rate and Rhythm, Normal S1 and S2, No Murmur Lungs: Normal Breath Sounds, No Wheeze, Rales, Rhonchi Neuro: Alert and responsive, No focal deficits noted Abdomen: Soft, Non-Tender Skin: No rashes noted on visualized skin Musculoskeletal: No Chest Wall Tenderness Extremities: No Clubbing, No Cyanosis, No Edema, Normal Pulses Results 06/25/17 00:33 06/25/17 00:33 Lab Results Active Medications Acetaminophen (Tylenol) 650 mg PO Q6HR PRN PRN Reason: Mild Pain (1-3) Stop: 12/24/17 20:13 Last Admin: 06/26/17 15:14 Dose: 650 mg Albuterol Sulfate (Albuterol Inhaler) 2 puff IH Q4HR PRN PRN Reason: Shortness Of Breath/Wheezing Stop: 12/25/17 14:51 Albuterol/Ipratropium (Duoneb) 3 ml IH QIDR [facility] Stop: 12/25/17 17:01 Last Admin: 06/26/17 17:03 Dose: Not Given Enoxaparin Sodium (Lovenox) 40 mg SQ 0600 [facility] PRN Reason: Protocol Stop: 12/25/17 06:01 Last Admin: 06/26/17 05:15 Dose: 40 mg Morphine Sulfate (Morphine Sulfate) 2 mg IVP Q4HR PRN PRN Reason: Chest Pain Stop: 12/25/17 10:52 Naloxone HCl (Narcan) 0.4 mg IVP Q2MIN PRN PRN Reason: Opioid Reversal Stop: 12/24/17 20:13 Nitroglycerin (Nitroglycerin) 0.4 mg SL Q5MIN PRN PRN Reason: Chest Pain Stop: 12/24/17 18:34 Last Admin: 06/25/17 11:04 Dose: 0.4 mg Omeprazole (Prilosec) 20 mg PO BIDAC [facility] PRN Reason: Protocol Stop: 12/25/17 16:31 Last Admin: 06/26/17 15:14 Dose: 20 mg Prednisone (Prednisone) 40 mg PO DAILY [facility] Stop: 12/25/17 15:01 Last Admin: 06/26/17 07:48 Dose: 40 mg Laboratory Tests 06/24/17 06/25/17 06/25/17 18:36 00:33 00:33 Hgb 12.7 L D Creatinine Troponin I 0.00 0.00 06/25/17 06/25/17 00:33 05:32 Hgb Creatinine 0.87 Troponin I 0.00 - Imaging and Cardiology Chest Xray: report reviewed Stress Test: report reviewed Echo: report reviewed (Telemetry reviewed with average HR 73, sinus rhythm with intermittent pacing. PACs noted.) Consult Discharge Plan - Plan Referrals: NONE,PCP [Primary Care Provider] -
--- NOTE | 2017-06-26 18:15 | Discharge Summary ---
Date of Encounter: 06/26/17 Time of Encounter: 17:00 - Discharge Diagnosis (1) Chest pain Priority: Primary Status: Ruled-out Comments: Patient still having intermittent bouts of epigastric/substernally located chest pain- ACS ruled out. Relieved with nitroglycerin consistent with esophageal spasms secondary to his uncontrolled reflux. Cleared by Cardiology. Qualifiers: Chest pain type: chest pain on breathing Qualified Code(s): R07.1 - Chest pain on breathing; R07.81 - Pleurodynia (2) Esophageal spasm Priority: Primary Status: Suspected Comments: Pain was abated with a GI cocktail consistent with uncontrolled reflux. Started on PPI. (3) Pacemaker Priority: Secondary Status: Chronic Comments: checked per cardiology functioning normally. 9years 6 mos on battery. (4) POE (dyspnea on exertion) Priority: Primary Status: Acute Comments: CHF ruled out. Likely pulmonic given his lengthy smoking history. Started on COPD controller meds and his POE improved. Follow-up outpatient. (5) Tobacco abuse Priority: Secondary Status: Resolved Comments: Patient was a heavy smoker but stopped 6-7 years ago. (6) GERD (gastroesophageal reflux disease) Priority: Secondary Status: Chronic Comments: Uncontrolled. Started on PPI. Qualifiers: Esophagitis presence: esophagitis presence not specified Qualified Code(s) : K21.9 - Gastro-esophageal reflux disease without esophagitis (7) Bradycardia Priority: Secondary Status: Chronic Comments: Pacemaker working fine, cleared for outpatient follow-up per cardiology (8) Learning disability Priority: Secondary Status: Chronic Comments: Able to answer simple questions. Follow up outpatient. (9) DVT prophylaxis Priority: Primary Status: Acute Comments: Subcutaneous Lovenox - Discharge Medications Prescriptions: Albuterol Sulfate [Albuterol Inhaler] 2 puff IH Q4HR PRN #1 PRN Reason: Shortness Of Breath/Wheezing Budesonide/Formoterol 80/4.5 [Symbicort 80/4.5] 1 gm IH BIDR #1 hfa.aer.ad Omeprazole [PriLOSEC] 20 mg PO BIDAC #60 predniSONE [PredniSONE] 40 mg PO DAILY #8 tab Home Medications: Albuterol Sulfate [Albuterol Inhaler] 2 puff IH Q4HR PRN #1 06/26/17 [Rx] Budesonide/Formoterol 80/4.5 [Symbicort 80/4.5] 1 gm IH BIDR #1 hfa.aer.ad [Rx] Omeprazole [PriLOSEC] 20 mg PO BIDAC #60 06/26/17 [Rx] predniSONE [PredniSONE] 40 mg PO DAILY #8 tab 06/26/17 [Rx] Allergies/Adverse Reactions: Allergies No Known Allergies Allergy (Verified 06/24/17 18:18) Procedures/tests Complete & Pending: Procedures Performed prior 72 hours Category Date Time Status EV echocardiogram Routine Y 06/26/17 14:48 Completed SP exercise stress ECG Routine Y 06/25/17 Completed Date of admission: 06/24/17 19:48 Primary care physician: PCP NONE Consults: 06/24/17 20:12 Consult to Cardiology [CONS] Routine Comment: Consulting Provider: Cardiology Alyce Reason for Consult: Chest pain; additionally, patient has a pacer d/t H/o bracardia. Pacer is not working. Call Completed: No 06/25/17 14:50 Consult to Nurse Navigator [CONS] Routine Comment: Discharging clinician: Mirna Mo Anticipated date of discharge: 06/26/17 - Patient Status Disposition: Home, Self-Care Condition: Good Functional capacity at discharge: independent ambulation Overall status at discharge: patient is back to baseline - Discharge Instructions Follow Up With: NONE,PCP [Primary Care Provider] - Additional Instructions: Follow-up with primary care provider and foreign language stenographer in [place] - Diet and Activity Activity: increase activity as tolerated Diet: regular diet Hospital course: Mr. Canales is a 52 year old male with past medical history of bradycardia status post pacemaker placement, learning disabilities, former smoker, current smokeless tobacco user. Patient is from [place] and was here in [place] visiting family when he presented to the emergency department chief complaint of shortness of breath for several days associated with decrease in activity, increased shortness of breath with exertion as well as intermittent chest pain associated with diaphoresis. Patient described the pain as knifelike with radiation to his back and shoulders as well as his left arm associated with diaphoresis, dyspnea, dizziness, and near syncopal event. Of note, patient had his pacemaker placed in 2011 and has not seen a foreign language stenographer or had it checked since then. He does not regularly see a primary care provider. He is on no medications at home. Workup in the emergency department unremarkable. EKG was normal sinus rhythm. Chest x-ray negative. Patient was admitted to the hospitalist service for further evaluation and management. We proceeded with an exercise stress test that was unremarkable. Patient continuing to have intermittent bouts of epigastric/substernally located chest pain. While admitted, these episodes were relieved with nitroglycerin and once cardiac etiology was deemed less likely, patient also endorsed severe, uncontrolled reflux. He was started on twice a day PPI and his pain was also relieved with a GI cocktail suggestive of uncontrolled reflux with esophageal spasms. Low suspicion for acute coronary syndrome. Patient also endorsed worsening dyspnea on exertions and echocardiogram was obtained which revealed an ejection fraction of 55% and was otherwise unremarkable. On examination, patient with diffuse expiratory wheezing throughout. Patient was a heavy smoker from the time he was a kid up until approximately 6 years ago. Suspect undiagnosed COPD. Patient was started on bronchodilators and by mouth steroids and his shortness of breath and dyspnea on exertion improved greatly so he was sent home on these medications. Cardiology also interrogated his pacemaker which was functioning normally and has another 9 years in 6 months left on the battery. Patient's is also concerned that he is always on the go, thyroid studies normal. Cardiology also saw the patient in consultation and cleared him for outpatient follow-up. He was discharged home in stable condition with close outpatient follow-up highly recommended. ITS Impressions Chest X-Ray 06/24/17 18:10 IMPRESSION: No acute cardiopulmonary disease. D/ / Avery Starkey MD / Avery Starkey MD Interpreting Provider: Avery Starkey MD Exercise Stress Impressions: Stress ECG was indeterminate for ischemia due to failure to achieve target heart rate. ECG interpretation is also challenging secondary to abnormal ST findings at baseline. Exercise capacity was average. Adequate blood pressure response. No arrhythmias noted with stress. Patient had no chest pain with stress. Echocardiogram Indications: worsening POE Impressions: Suboptimal echo windows. Normal LV systolic function, LVEF 55%. Right ventricle was suboptimally evaluated on this study. It appears mildly dilated with normal function. A device lead was visualized in the right atrium and right ventricle. No significant valvular dysfunction. No evidence of pulmonary hypertension. - Time Spent with Patient Total time spent providing and/or coordinating discharge services: - Constitutional Vitals: Temp Pulse Resp BP Pulse Ox 98.1 F 60 14 113/73 95 06/26/17 15:02 06/26/17 15:02 06/26/17 15:02 06/26/17 15:02 06/26/17 15:02 General appearance: Present: cooperative, A&O X 3, pleasant, no acute distress, answers questions appropriately - Head Head exam: Present: atraumatic, normocephalic - Eye Eye exam: Present: PERRL, conjuntiva pink, sclera anicteric Pupils: Present: PERRL - Neck Neck exam general surgery: Present: supple, trachea midline. Absent: lymphadenopathy - Respiratory Respiratory exam: Present: decreased breath sounds, prolonged expiratory phase, wheezes. Absent: accessory muscle use, rales, respiratory distress, rhonchi - Cardiovascular Cardiovascular exam: Present: RRR, +S1, +S2. Absent: diastolic murmur, gallop, rubs, systolic murmur - GI/Abdominal GI/Abdominal exam: Present: normal bowel sounds, soft, no peritoneal signs. Absent: distended, tenderness - Extremities Exam Extremities exam: Present: warm, radial pulses palpable and symmetrical. Absent : calf tenderness, cyanotic, pedal edema - Neurological Exam Neurological exam: Present: alert, CN II-XII intact, normal gait, oriented X3, no focal deficits, strengths equal and symetr throughout. Absent: pronater drift, facial droop, speech deficit - Skin Skin exam: Present: dry, intact, normal color, warm
== END 2017-06-26 18:50 | disposition home or self-care (01) ==
LOC: 3BNU 18:03 → EMEROO 18:03 → 3BNU 20:11
PROVIDERS: ADMIT Internal Medicine Hematology & Oncology; ATTEND Nurse Practitioner Family